=== PATIENT | female | born 1965 | race African-American/Black ===

== ENCOUNTER 2017-07-16 10:50 | Emergency (ER) | payer BC ==
[~2017-07-16] VITALS: Ht 157.5 cm; Wt 49.0 kg
[2017-07-16 11:06] VITALS: BP 189/122; PULSE 71; RESP 16; TEMP 98; O2SAT 100
[2017-07-16] MEDS ORDERED: GABA300C5 PO (11:18)
[2017-07-16] MEDS ORDERED: LISI-515 PO (11:18)
[2017-07-16] MEDS ORDERED: MELO15TA20 PO (11:18)
--- NOTE | 2017-07-16 12:15 | PD ---
HPI Chief Complaint: Musculoskeletal Complaint Time Seen by Provider: 11:50 Travel History International Travel<30 days: No Contact w/Intl Traveler<30days: No Traveled to known affect area: No History of Present Illness HPI Is is a 51-year-old female here with left shoulder and neck pain ongoing for several months. She reports the last several days the area became increasingly more painful. 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 The area is intermittently painful which is worse with range of motion of the shoulder and relieved with rest. She denies chest pain shortness of breath. Symptoms severity is moderate. Aggravated by movement and relieved with rest. PFSH Past Medical History Diminished Hearing: No Hypertension: Yes Medical other: Yes (injury to left clavicular area with chronic pain ) Musculoskeletal: Yes (CHRONIC BACK PAIN-PROBLEMS WITH SCIATICA) Immunizations Current: No Tetanus Vaccination: Unknown Influenza Vaccination: Yes ?: Not : 1 Para: 1 Miscarriage: 0 : 0 Ovarian Cysts: Yes (OOPHRECTOMY RIGHT) Past Surgical History Genitourinary Surgery: Yes (OOPHRECTOMY) Gynecologic Surgery: Yes (right oopherectomy) Social History Alcohol Use: Yes (OCCASSIONALLY) Tobacco Use: No (1 pd) Substance Use: No Allergies-Medications (Allergen,Severity, Reaction): Coded Allergies: No Known Allergies (Verified Adverse Reaction, Unknown, 07/16/17) Reported Meds & Prescriptions Reported Meds & Active Scripts Active Reported Meloxicam 15 Mg Tab 15 Mg PO DAILY Lisinopril 20 Mg Tab 20 Mg PO DAILY Gabapentin 300 Mg Cap 300 Mg PO DAILY Review of Systems Except as stated in HPI: all other systems reviewed are Neg Cardiovascular: No: Chest Pain or Discomfort Respiratory: No: Shortness of Breath Gastrointestinal: No: Abdominal Pain Physical Exam Narrative GENERAL: Alert well-appearing 51-year-old female SKIN: Warm and dry. HEAD: Normocephalic. EYES: No injection or drainage. NECK: Supple CARDIOVASCULAR: Regular rate and rhythm without murmurs, gallops, or rubs. RESPIRATORY: Breath sounds equal bilaterally. No accessory muscle use. GASTROINTESTINAL: Abdomen soft, non-tender, nondistended. MUSCULOSKELETAL: No cyanosis, or edema. +TTP left trapezius muscle tenderness and spasm. +TTP left anterior shoulder. She has full passive range of motion of the shoulder. Pain with active forward extension and external rotation of the shoulder. 2+ distal pulses. Normal sensation. Brisk cap refill BACK: Nontender without obvious deformity. No CVA tenderness. Data Data Last Documented VS Vital Signs Date Time Temp Pulse Resp B/P (MAP) Pulse Ox O2 Delivery O2 Flow Rate FiO2 07/16/17 11:06 98.0 71 16 189/122 (144) 100 MDM Medical Decision Making Medical Screen Exam Complete: Yes Emergency Medical Condition: Yes Differential Diagnosis Rotator cuff injury, trapezius muscle spasm, sprain/strain Narrative Course 51-year-old female here with left trapezius muscle spasm and suspected old rotator cuff injury. She'll be treated with NSAIDs and muscle relaxers. She can follow with PCP or with her. Diagnosis Primary Impression: Trapezius muscle spasm Referrals: Orthopedist Primary Care Physician Departure Forms: Tests/Procedures, Work Release Enter return to work date: Jul 17, 2017 Special Instructions: No heavy lifting, pulling with the left upper extremity for one week Additional Instructions: Ice and/or heat. Medication as directed. Avoid heavy lifting or strenuous activity. Scripts Methocarbamol (Robaxin) 750 Mg Tab 750 MG PO QID for Muscle Spasm, #12 TAB 0 Refills Prov: Marlene Goodson 07/16/17 Disposition: 01 DISCHARGE HOME Condition: Stable Marlene Goodson Jul 16, 2017 12:15
[2017-07-16] MEDS ORDERED: ROBA750T PO (12:24)
== END 2017-07-16 12:34 | disposition home or self-care (01) ==
LOC: PHEFT 10:50
DX: M62.830 Muscle spasm of back (principal); I10 Essential (primary) hypertension
CPT/HCPCS: 99283

== ENCOUNTER 2017-07-23 07:57 | Emergency (ER) | payer BC ==
[~2017-07-23] VITALS: Ht 157.5 cm; Wt 60.0 kg
[~2017-07-23 07:57] MED LIST: GABA300C5 PO; LISI-515 PO; MELO15TA20 PO; ROBA750T PO
[2017-07-23 08:00] VITALS: BP 175/116; PULSE 62; RESP 16; TEMP 98.5; O2SAT 99
--- NOTE | 2017-07-23 08:41 | PD ---
HPI Chief Complaint: Wound/Suture/Staple Re-Check Time Seen by Provider: 08:23 Travel History International Travel<30 days: No Contact w/Intl Traveler<30days: No Traveled to known affect area: No History of Present Illness HPI 51-year-old female complains of back pain. Patient has history of chronic recurrent back pain upper back and low back. Patient was seen in emergency room a week ago and was diagnosed with muscle spasm. Patient states that she had acute exacerbation of her upper back pain after lifting heavy patient at work. Patient was given prescription for Robaxin for pain. Patient states that the pain is better and she needs a note to go back to work. Patient states that she has chronic upper low back pain for years. Patient denies any new injury. Patient denies any focal weakness or numbness of the extremity. Patient is on meloxicam and Robaxin. PFSH Past Medical History Diminished Hearing: No Hypertension: Yes Musculoskeletal: Yes (CHRONIC BACK PAIN-PROBLEMS WITH SCIATICA) Immunizations Current: No Influenza Vaccination: No ?: Not : 1 Para: 1 Miscarriage: 0 : 0 Ovarian Cysts: Yes (OOPHRECTOMY RIGHT) Past Surgical History Genitourinary Surgery: Yes (OOPHRECTOMY) Gynecologic Surgery: Yes (right oopherectomy) Social History Alcohol Use: Yes (OCCASSIONALLY) Tobacco Use: No (1 pd) Substance Use: No Allergies-Medications (Allergen,Severity, Reaction): Coded Allergies: No Known Allergies (Verified Adverse Reaction, Unknown, 07/23/17) Reported Meds & Prescriptions Reported Meds & Active Scripts Active Robaxin (Methocarbamol) 750 Mg Tab 750 Mg PO QID Reported Meloxicam 15 Mg Tab 15 Mg PO DAILY Lisinopril 20 Mg Tab 20 Mg PO DAILY Gabapentin 300 Mg Cap 300 Mg PO DAILY Review of Systems General / Constitutional: No: Fever Eyes: No: Visual changes HENT: No: Headaches Cardiovascular: No: Chest Pain or Discomfort Respiratory: No: Shortness of Breath Gastrointestinal: No: Abdominal Pain Genitourinary: No: Dysuria Musculoskeletal: Positive: Pain Skin: No Rash Neurologic: No: Weakness Psychiatric: No: Depression Endocrine: No: Polydipsia Hematologic/Lymphatic: No: Easy Bruising Physical Exam Narrative GENERAL: Well-nourished, well-developed patient. SKIN: Focused skin assessment warm/dry. HEAD: Normocephalic. EYES: No scleral icterus. No injection or drainage. NECK: Supple, trachea midline. No JVD or lymphadenopathy. CARDIOVASCULAR: Regular rate and rhythm without murmurs, gallops, or rubs. RESPIRATORY: Breath sounds equal bilaterally. No accessory muscle use. GASTROINTESTINAL: Abdomen soft, non-tender, nondistended. MUSCULOSKELETAL: No cyanosis, or edema. BACK: Mild tenderness on palpation diffusely over left upper back and low back area. Neurologic exam normal. Data Data Last Documented VS Vital Signs Date Time Temp Pulse Resp B/P (MAP) Pulse Ox O2 Delivery O2 Flow Rate FiO2 07/23/17 08:00 98.5 62 16 175/116 (135) 99 Orders Orders Ed Discharge Order (07/23/17 08:41) [facility] Medical Decision Making Medical Screen Exam Complete: Yes Emergency Medical Condition: Yes Differential Diagnosis Differential diagnosis including acute exacerbation of back pain. Narrative Course 51-year-old female with chronic recurrent back pain. Patient was seen in emergency room a week ago. Patient needs a note to go back to work. Diagnosis Primary Impression: Back pain Qualified Codes: M54.6 - Pain in thoracic spine; G89.29 - Other chronic pain Patient Instructions: General Instructions Additional Instructions: Continue with meloxicam and Robaxin as needed for pain. Follow-up with personal physician. Patient released to work with light duty no heavy lifting more than 25 pounds. Med/Other Pt SpecificInfo: No Change to Meds Disposition: 01 DISCHARGE HOME Condition: Stable Morales Zamorano MD Jul 23, 2017 08:41
== END 2017-07-23 08:55 | disposition home or self-care (01) ==
LOC: PHED 07:57
DX: M54.6 Pain in thoracic spine (principal); G89.29 Other chronic pain
CPT/HCPCS: 99281